=== PATIENT | male | born 1995 | race Two or more races ===

== ENCOUNTER 2017-11-10 02:15 | Inpatient (IN) | payer BC, OTHER ==
[~2017-11-10] VITALS: Ht 177.8 cm; Wt 70.8 kg
[2017-11-10] MEDS ORDERED: LEVETIRACETAM (500MG) 500 MG in IV NS 0.9% 100 ML IV ONE (02:30)
[2017-11-10] MEDS ORDERED: LEVETIRACETAM (500MG) 500 MG/5 ML VIAL IV ONE (02:31)
[2017-11-10 02:36] LABS: BASOPHILS % (AUTO) 0.3 % (0.0-2.0); EOSINOPHILS # (AUTO) 0.1 /CMM (0.0-0.7); EOSINOPHILS % (AUTO) 0.8 % (0.0-6.0); HEMATOCRIT 46 % (39-51); HEMOGLOBIN 15.9 g/dL (13.5-17.5); LYMPHOCYTES # (AUTO) 1.8 /CMM (0.8-4.8); LYMPHOCYTES % (AUTO) 23.3 % (20.0-44.0); MEAN CORPUSCULAR HEMOGLOBIN 32 PG (26.0-33.0); MEAN CORPUSCULAR HGB CONC 35 g/dl (31.0-36.0); MEAN CORPUSCULAR VOLUME 91 fL (80-96); MONOCYTES # (AUTO) 0.7 /CMM (0.1-1.30); MONOCYTES % (AUTO) 9.4 % (2.0-12.0); NEUTROPHILS # (AUTO) 5.1 /CMM (1.8-8.9); NEUTROPHILS % (AUTO) 66.2 % (43.0-81.0); PLATELET COUNT (AUTO) 185 /CMM (150-450); RDW COEFFICIENT OF VARIATION 11.9 (11.5-15.0); RED BLOOD CELL COUNT(AUTO) 5.03 MIL/uL (4.5-6.0); WHITE BLOOD COUNT (AUTO) 7.6 K/uL (4.3-11.0)
[2017-11-10 02:47] LABS: CALCIUM, SERUM 9.4 mg/dL (8.5-10.1); CARBON DIOXIDE 27 mmol/L (21-32); CHLORIDE 100 mmol/L (98-107); CREATININE 1.2 mg/dL (0.6-1.3); GLUCOSE 98 mg/dL (74-106); POTASSIUM 3.4 mmol/L (3.5-5.1); SODIUM SERUM 140 mmol/L (136-145); UREA NITROGEN, BLOOD 19 mg/dL (7-18)
[2017-11-10] MEDS ORDERED: ONDANSETRON HCL/PF 4 MG/2 ML VIAL ONE ×2 (02:50→04:53)
[2017-11-10 02:54] LABS: ALANINE AMINOTRANSFERASE 24 U/L (12-78); ALBUMIN 4.4 g/dL (3.4-5.0); ALKALINE PHOSPHATASE 84 U/L (46-116); ASPARTATE AMINOTRANSFERASE 18 U/L (15-37); BILIRUBIN,DIRECT 0.3 mg/dL (0.0-0.2); BILIRUBIN,TOTAL 1.7 mg/dL (0.2-1.0); TOTAL PROTEIN, SERUM 8.2 g/dL (6.4-8.2)
[2017-11-10 02:57] LABS: ALCOHOL, BLOOD < 3 mg/dL (0-0)
[2017-11-10] MEDS ORDERED: IV NS 0.9% 1,000 ML BAG IV ONE (03:00)
[2017-11-10] MEDS ORDERED: ONDANSETRON HCL/PF - ER 4 MG/2 ML VIAL IV ONE ×2 (03:00→05:00)
[2017-11-10] MEDS ORDERED: LIDOCAINE 2% JEL UROJET 10 ML MM ONE (04:06)
[2017-11-10] MEDS ORDERED: POTASSIUM CHLORIDE 10 MEQ/50 ML PREMIXED IVPB FOR PERIPHERAL LINE IV ONE (05:00)
[2017-11-10] MEDS ORDERED: HYDROCODONE/APAP 5/325MG 1 EACH TABLET PO PRN (06:00)
[2017-11-10] MEDS ORDERED: LORAZEPAM INJ 2 MG/ML VIAL IV PRN (06:00)
[2017-11-10] MEDS ORDERED: MAG HYDROX/AL HYDROX/SIMETH 30 ML UDC PO PRN (06:00)
[2017-11-10] MEDS ORDERED: MAGNESIUM HYDROXIDE 30 ML UDC PO PRN (06:00)
[2017-11-10] MEDS ORDERED: ONDANSETRON HCL/PF 4 MG/2 ML VIAL IVP PRN (06:00)
[2017-11-10] MEDS ORDERED: IV NS 0.9% 1,000 ML BAG IV PRN (06:00)
[2017-11-10] MEDS ORDERED: Z GUARD REMEDY 2 OZ OINT TP PRN (06:00)
[2017-11-10] MEDS ORDERED: ZOLPIDEM TARTRATE 5 MG TABLET PO PRN (06:00)
[2017-11-10] MEDS: POTASSIUM CL. PREMIX PERIPHER. 50 ML IV SCH ×2 (07:41→08:41)
[2017-11-10] MEDS ORDERED: CEFTRIAXONE 2 G in IV D5W 100 ML IV SCH (11:00)
[2017-11-10] MEDS ORDERED: ACYCLOVIR IV 1 GM in IV D5W 250 ML IV SCH (11:00)
[2017-11-10] MEDS ORDERED: ACYCLOVIR IV 0.75 GM in IV D5W 250 ML IV ONE (11:03)
[2017-11-10] MEDS: VANCOMYCIN 1 GM in IV D5W 250 ML IV ONE ×2 (11:35→12:32)
[2017-11-10] MEDS ORDERED: LORAZEPAM INJ 2 MG/ML VIAL ONE ×2 (13:40→14:54)
[2017-11-10] MEDS ORDERED: LORAZEPAM INJ 2 MG/ML VIAL IVP ONE (13:44)
[2017-11-10 16:00] VITALS: BP 112/53
[2017-11-10] MEDS ORDERED: FEE PK DOSING 1 MIN EA MC ONE (17:07)
[2017-11-10] MEDS ORDERED: AMPICILLIN 500 MG in IV NS 0.9% 50 ML IV SCH (18:00)
[2017-11-10 18:20] LABS: CSF GLUCOSE 90 mg/dL (40-70); CSF PROTEIN 57.8 mg/dL (15-45)
[2017-11-10] MEDS: IV NS 0.9% 1,000 ML IV PRN (18:57)
[2017-11-10 20:00] VITALS: BP 119/59
[2017-11-10] MEDS ORDERED: ACETAMINOPHEN 650 MG/SUPP.RECT RC PRN (20:30)
[2017-11-10] MEDS: AMPICILLIN 1 GM in IV NS 0.9% 50 ML IV SCH ×2 (20:43→23:20)
[2017-11-10] MEDS: ACYCLOVIR IV 0.75 GM in IV D5W 250 ML IV SCH (21:20)
[2017-11-10] MEDS: VANCOMYCIN 1.25 GM in IV D5W 500 ML IV SCH (21:20)
[2017-11-10] MEDS: CEFTRIAXONE 2 G in IV D5W 100 ML IV SCH (23:34)
[2017-11-11] VITALS: BP 121/67
[2017-11-11 04:00] VITALS: BP 116/74
[2017-11-11] MEDS: ACYCLOVIR IV 0.75 GM in IV D5W 250 ML IV SCH ×3 (04:11→20:38)
[2017-11-11] MEDS: VANCOMYCIN 1.25 GM in IV D5W 500 ML IV SCH ×2 (04:11→15:09)
[2017-11-11] MEDS: AMPICILLIN 1 GM in IV NS 0.9% 50 ML IV SCH ×3 (06:15→18:30)
[2017-11-11 08:00] VITALS: BP 130/68
[2017-11-11 08:29] LABS: POTASSIUM 3.1 mmol/L (3.5-5.1)
[2017-11-11 08:35] LABS: ALBUMIN 3.7 g/dL (3.4-5.0); BILIRUBIN,TOTAL 2.4 mg/dL (0.2-1.0); TOTAL PROTEIN, SERUM 7.4 g/dL (6.4-8.2)
[2017-11-11 08:41] LABS: PHOSPHORUS 3.6 mg/dL (2.5-4.9)
[2017-11-11] MEDS ORDERED: CEFTRIAXONE 2 G in IV D5W 100 ML IV SCH (11:00)
[2017-11-11] MEDS: CEFTRIAXONE 2 G in IV D5W 100 ML IV SCH ×2 (11:41→23:01)
[2017-11-11 12:00] VITALS: BP 134/91
[2017-11-11] MEDS: POTASSIUM CHLORIDE 20 MEQ TAB.PRT.SR PO SCH ×2 (12:08→12:59)
[2017-11-11] MEDS ORDERED: ACETAMINOPHEN 325 MG TABLET PO PRN (14:00)
[2017-11-11] MEDS: ACETAMINOPHEN 325 MG TABLET PO PRN ×2 (14:14→21:59)
[2017-11-11 16:00] VITALS: BP 127/66
[2017-11-11 16:39] LABS: BASOPHILS % (AUTO) 0.3 % (0.0-2.0); EOSINOPHILS % (AUTO) 0.5 % (0.0-6.0); HEMATOCRIT 45 % (39-51); HEMOGLOBIN 15.8 g/dL (13.5-17.5); LYMPHOCYTES # (AUTO) 1.2 /CMM (0.8-4.8); LYMPHOCYTES % (AUTO) 12.7 % (20.0-44.0); MEAN CORPUSCULAR HEMOGLOBIN 32 PG (26.0-33.0); MEAN CORPUSCULAR HGB CONC 35 g/dl (31.0-36.0); MEAN CORPUSCULAR VOLUME 92 fL (80-96); MONOCYTES # (AUTO) 0.9 /CMM (0.1-1.30); MONOCYTES % (AUTO) 10.1 % (2.0-12.0); NEUTROPHILS # (AUTO) 7.2 /CMM (1.8-8.9); NEUTROPHILS % (AUTO) 76.4 % (43.0-81.0); PLATELET COUNT (AUTO) 169 /CMM (150-450); RDW COEFFICIENT OF VARIATION 12.3 (11.5-15.0); RED BLOOD CELL COUNT(AUTO) 4.91 MIL/uL (4.5-6.0); WHITE BLOOD COUNT (AUTO) 9.4 K/uL (4.3-11.0)
[2017-11-11] MEDS: IV NS 0.9% 1,000 ML IV PRN (18:30)
[2017-11-11] MEDS: NAPROXEN 500 MG TABLET PO SCH (18:30)
[2017-11-11 20:00] VITALS: BP 134/67
[2017-11-12] VITALS (7 sets, daily range): BP systolic 104–119; BP diastolic 51–74
[2017-11-12] MEDS: AMPICILLIN 1 GM in IV NS 0.9% 50 ML IV SCH ×3 (00:29→13:29)
[2017-11-12] MEDS: ACYCLOVIR IV 0.75 GM in IV D5W 250 ML IV SCH ×3 (04:12→20:58)
[2017-11-12] MEDS: IV NS 0.9% 1,000 ML IV PRN ×2 (07:11→18:11)
[2017-11-12 08:31] LABS: CALCIUM, SERUM 9.1 mg/dL (8.5-10.1); CREATININE 0.8 mg/dL (0.6-1.3); POTASSIUM 3.4 mmol/L (3.5-5.1)
[2017-11-12 09:23] LABS: *WEST NILE VIRUS IgG, CSF Negative (Negative)
[2017-11-12] MEDS: LACTOBACILLUS RHAMNOSUS GG 1 EACH CAP.SPRINK PO SCH ×2 (10:09→18:10)
[2017-11-12] MEDS: NAPROXEN 500 MG TABLET PO SCH ×2 (10:09→18:10)
[2017-11-12] MEDS: CEFTRIAXONE 2 G in IV D5W 100 ML IV SCH (10:09)
[2017-11-12 11:09] LABS: *WEST NILE VIRUS IgM, CSF Negative (Negative)
[2017-11-12] MEDS ORDERED: POTASSIUM CHLORIDE 20 MEQ TAB.PRT.SR PO SCH (14:00)
[2017-11-13] VITALS: BP 130/72
[2017-11-13 04:01] VITALS: BP 111/50
[2017-11-13] MEDS: ACYCLOVIR IV 0.75 GM in IV D5W 250 ML IV SCH ×2 (05:06→11:43)
[2017-11-13 07:22] LABS: CALCIUM, SERUM 8.8 mg/dL (8.5-10.1); CREATININE 0.7 mg/dL (0.6-1.3); POTASSIUM 3.7 mmol/L (3.5-5.1)
[2017-11-13 08:00] VITALS: BP 106/67
[2017-11-13] MEDS: NAPROXEN 500 MG TABLET PO SCH ×2 (08:55→09:00)
[2017-11-13] MEDS: LACTOBACILLUS RHAMNOSUS GG 1 EACH CAP.SPRINK PO SCH (08:55)
[2017-11-13] MEDS: IV NS 0.9% 1,000 ML IV PRN (10:42)
[2017-11-13 12:01] VITALS: BP 130/85
[2017-11-13] MEDS: ACETAMINOPHEN 325 MG TABLET PO PRN (13:37)
[2017-11-15 16:11] LABS: *HSV 1 DNA PCR Negative (Negative); *HSV 2 DNA PCR Negative (Negative)
== END 2017-11-13 14:05 | disposition home or self-care (01) | DRG 98 ==
LOC: ER 02:17 → UNDOADMIN 04:25 → TELE1 04:25 → TRANSITION 04:25 → MEDSG1 11-13 12:06
PROVIDERS: ADMIT Internal Medicine; ATTEND Internal Medicine
DX: A86 Unspecified viral encephalitis (principal); A87.9 Viral meningitis, unspecified; R56.9 Unspecified convulsions; E87.6 Hypokalemia; R74.0 Nonspecific elevation of levels of transaminase and lactic acid dehydrogenase [LDH]; E86.0 Dehydration
CPT/HCPCS: 36415; 70450-TC; 71045; 80048-TC; 80053-TC; 80076-TC; 80202-TC; 80305; 82962-TC; 83735-TC; 84100-TC; 85025-TC; 86694; 86788; 86789; 87040-TC; 87070-TC; 87081-TC; 89051-TC; 95819-TC; A4216; G0480; J0133; J0290; J0696; J1953; J2060; J2405; J3370; J3480; J3490; J7030; J7060